=== PATIENT | female | born 1975 | race Caucasian/White ===

== ENCOUNTER 2017-01-23 12:03 | Emergency (ER) | payer BC ==
[2017-01-23 12:16] VITALS: BP 129/95
--- NOTE | 2017-01-23 12:28 | UC ---
Cardiac HPI - HPI Summary HPI Summary: 41 yo female with the onset last PM of mild left side chest pressure (3/10) vague left arm pain was a little winded when she did house work no n/v no abd pain no diaphoresis no current dysnea - History of Current Complaint Chief Complaint: UCChestPain Stated Complaint: CHEST PAIN Time Seen by Provider: 01/23/17 12:21 Hx Obtained From: Patient Onset/Duration: Gradual Onset, Lasting Hours Timing: Constant Initial Severity: Mild Current Severity: None Pain Intensity: 3 - some vague left arm discomfort Chest Pain Location: Left Anterior Character: Pressure/Squeezing Aggravating: Nothing Alleviating: Nothing Associated Signs & Symptoms: Positive: Chest Pain. Negative: Vision Changes, Anxiety, Recent Stress, Headaches, Numbness, Tingling, Weakness, Dizziness, SOB , Swelling, Syncope, Fever, Diaphoresis, Nausea/Vomiting, Palpitations, Cough, Hemoptysis, Back Pain, Abdominal Pain, Calf Pain/Swelling Related History: Similar Episode/Dx as - similar but less severe symptoms have been going on for months. She spoke about this to her MD had had lipid panel ordered by she has not yet had it drawn - Allergy/Home Medications Allergies/Adverse Reactions: Allergies Allergy/AdvReac Type Severity Reaction Status Date / Time Penicillins Allergy Rash Verified 01/23/17 12:16 Home Medications: Home Medications NK [No Home Medications Reported] 01/23/17 [History Confirmed 01/23/17] PMH/Surg Hx/FS Hx/Imm Hx Previously Healthy: Yes Endocrine History Of: Denies: Diabetes, Thyroid Disease Cardiovascular History Of: Denies: Cardiac Disorders, Hypertension Respiratory History Of: Denies: COPD, Asthma GI/ History Of: Denies: Ulcer - Surgical History Surgical History: Yes Surgery Procedure, Year, and Place: csection 02/2012. Hysterectomy 2014 - Family History Known Family History: Positive: Cardiac Disease - DAD CABG age 45/MOM CABG age 50 - Social History Alcohol Use: Daily Alcohol Amount: 1 glass wine q daily Substance Use Type: None Smoking Status (MU): Never Smoked Tobacco Review of Systems Constitutional: Negative Skin: Negative Eyes: Negative ENT: Negative Respiratory: Negative Cardiovascular: Chest Pain Gastrointestinal: Negative Genitourinary: Negative Motor: Negative Neurovascular: Negative Musculoskeletal: Negative Neurological: Negative Psychological: Negative All Other Systems Reviewed And Are Negative: Yes Physical Exam Triage Information Reviewed: Yes Appearance: Well-Appearing, No Pain Distress, Well-Nourished Vital Signs: Initial Vital Signs Temp 98.2 F 01/23/17 12:06 Pulse 75 01/23/17 12:06 Resp 16 01/23/17 12:06 BP 129/95 01/23/17 12:06 Pulse Ox 100 01/23/17 12:06 Vital Signs Reviewed: Yes Eyes: Positive: Conjunctiva Clear ENT: Positive: Normal ENT inspection Dental Exam: Normal Neck exam: Normal Respiratory: Positive: Chest non-tender, Lungs clear, Normal breath sounds, No respiratory distress, No accessory muscle use Cardiovascular: Positive: RRR, No Murmur Abdomen Description: Positive: Nontender, Soft. Negative: CVA Tenderness (R), CVA Tenderness (L), Distended, Guarding Musculoskeletal: Positive: ROM Intact, No Edema Neurological: Positive: Alert, Muscle Tone Normal Psychological Exam: Normal Skin Exam: Normal Diagnostics - EKG Cardiac Rate: NL Cardiac Rhythm: Sinus: Normal Ectopy: None ST Segment: Normal - Assessment/Plan Course Of Treatment: because of her strong family HX of CAD at an early age I suggested she go to the ER for R/O ND. I told her that this could be CAD despite a normal EKG. She declines EMS transfer. D/W Dr. Louis - Clinical Impression Provider Diagnoses: Chest pain of uncertain cause Discharge - Discharge Plan Condition: Stable Disposition: AGAINST MEDICAL ADVICE
[2017-01-23] MEDS ORDERED: Aspirin Low Dose CHEW TAB* 81 MG PO ONE (12:43)
[2017-01-24] MEDS ORDERED: Aspirin Low Dose CHEW TAB* 81 MG PO ONE (12:35)
== END 2017-01-23 12:44 | disposition left against medical advice (07) ==
LOC: UCEAST 12:03
DX: R07.9 Chest pain, unspecified (principal); Z88.0 Allergy status to penicillin
CPT/HCPCS: 93005; 99213; A9270-GY; G0463

== ENCOUNTER 2017-01-23 13:13 | Emergency (ER) | payer BC ==
[2017-01-23] MEDS ORDERED: Aspirin Low Dose CHEW TAB* 81 MG PO ONE (14:27)
--- NOTE | 2017-01-23 15:00 | RAD ---
INDICATION: Chest pain. COMPARISON: There are no prior studies available for comparison. TECHNIQUE: A portable view of the chest was obtained. FINDINGS: Cardiac and mediastinal contours appear to be within normal limits. The lungs are clear. No pleural effusion is seen. IMPRESSION: NO EVIDENCE FOR ACUTE FINDING.
[2017-01-23 15:03] LABS: Hematocrit 42 % (35-47); Hemoglobin 14.4 g/dl (12.0-16.0); Mean Corpuscular HGB Conc 34 g/dl (31-36); Mean Corpuscular Hemoglobin 29 pg (27-31); Mean Corpuscular Volume 85 fL (80-97); Mean Platelet Volume 9 um3 (7.4-10.4); Red Blood Count 4.95 10^6/ul (4.0-5.4); Red Cell Distribution Width 13 % (10.5-15); White Blood Count 7.4 10^3/ul (3.5-10.8)
[2017-01-23] MEDS: Nitroglycerin TAB 0.4 MG* 0.4 MG TAB SL ONE ×2 (15:11→15:25)
[2017-01-23 15:17] LABS: Troponin I 0.02 ng/mL (<0.04)
[2017-01-23 15:24] LABS: Albumin 4.2 g/dL (3.2-5.2); BUN/Creatinine Ratio 19.6 (8-20); Calcium 8.6 mg/dL (8.6-10.3); EGFR African American 169.3 (>60); EGFR Non-African American 131.6 (>60); Globulin 2.5 g/dL (2-4); Potassium 3.9 mmol/L (3.5-5.0); Total Bilirubin 0.6 mg/dL (0.2-1.0); Total Protein 6.7 g/dL (6.4-8.9)
[2017-01-23] MEDS ORDERED: Ketorolac INJ* 30 MG/ML 1 ML VIAL IV PUSH ONE (16:26)
[2017-01-23 19:15] VITALS: BP 120/77
--- NOTE | 2017-01-24 14:25 | ED ---
Eric King SooYoung, scribed for Jaydon Louis MD on 01/23/17 at 1441 . HPI Chest Pain - HPI Summary HPI Summary: A 41 y/o F presents to ED referred from [facility] with c/o acute, constant CP onset last night. She states she's been having intermittent CP for past few months, but when it occurred last night it didn't go away. She describes it as uncomfortable, moreso than pain, rates it as a 3 out of 10. Associated sx: LUE pain. Denies: n/v, diaphoresis. Pert FHx: both parents had CAD, CABG before 55. Exertion does not seem to aggravate sx. PSHx: hysterectomy. Nondrinker. Occasional drinker. Denies recent trips. PCP is Dr. Garcia. - History of Current Complaint Chief Complaint: EDChestWallPain Time Seen by Provider: 01/23/17 14:26 Hx Obtained From: Patient Onset/Duration: Started Hours Ago, Still Present Timing: Constant Current Severity: Mild Pain Intensity: 3 Pain Scale Used: 0-10 Numeric Chest Pain Radiates: Yes Chest Pain Radiates To:: Arm - L Character: Pressure/Squeezing Associated Signs and Symptoms: Positive: Other: - POS: LUE pain. Negative: Diaphoresis, Nausea, Vomiting - Allergy/Home Medications Allergies/Adverse Reactions: Allergies Allergy/AdvReac Type Severity Reaction Status Date / Time Penicillins Allergy Rash Verified 01/23/17 12:16 PMH/Surg Hx/FS Hx/Imm Hx Previously Healthy: Yes Endocrine/Hematology History: Denies: Hx Diabetes, Hx Thyroid Disease Cardiovascular History: Denies: Hx Hypertension Respiratory History: Denies: Hx Asthma, Hx Chronic Obstructive Pulmonary Disease (COPD) GI History: Denies: Hx Ulcer - Surgical History Surgery Procedure, Year, and Place: csection 02/2012. Hysterectomy 2014 Infectious Disease History: No Infectious Disease History: Denies: Hx Clostridium Difficile, Hx Hepatitis, Hx Human Immunodeficiency Virus (HIV), Hx of Known/Suspected MRSA, Hx Shingles, Hx Tuberculosis, Traveled Outside the [place] in Last 30 Days - Family History Known Family History: Positive: Cardiac Disease - DAD CABG age 45/MOM CABG age 50 - Social History Occupation: Employed Full-time Lives: With Family Alcohol Use: Daily Alcohol Amount: 1 glass wine q daily Hx Substance Use: Yes Substance Use Type: Reports: None Hx Tobacco Use: Yes Smoking Status (MU): Never Smoked Tobacco Review of Systems Negative: Fever, Chills Negative: Erythema Negative: Sore Throat Positive: Chest Pain Negative: Shortness Of Breath, Cough Negative: Abdominal Pain, Vomiting, Nausea Negative: dysuria, hematuria Positive: Myalgia - LUE pain. Negative: Edema Negative: Rash Neurological: Other - neg: dizziness All Other Systems Reviewed And Are Negative: Yes Physical Exam - Summary Physical Exam Summary: Constitutional: Well-developed, Well-nourished, Alert. (-) Distressed Skin: Warm, Dry HENT: Normocephalic; Atraumatic Eyes: Conjunctiva normal Neck: Musculoskeletal ROM normal neck. (-) JVD, (-) Stridor, (-) Tracheal deviation Cardio: Rhythm regular, rate normal, Heart sounds normal; Intact distal pulses; The pedal pulses are 2+ and symmetric. Radial pulses are 2+ and symmetric. (-) Murmur Pulmonary/Chest wall: Effort normal. (-) Respiratory distress, (-) Wheezes, (-) Rales; NO COSTOCHONDRITIS TENDERNESS Abd: Soft, (-) Tenderness, (-) Distension, (-) Guarding, (-) Rebound Musculoskeletal: (-) Edema; Lymph: (-) Cervical adenopathy Neuro: Alert, Oriented x3 Psych: Mood and affect Normal Triage Information Reviewed: Yes Vital Signs On Initial Exam: Initial Vitals Temp Pulse Resp BP Pulse Ox 97.8 F 68 18 118/85 100 01/23/17 13:15 01/23/17 13:15 01/23/17 13:15 01/23/17 13:15 01/23/17 13:15 Vital Signs Reviewed: Yes - Maxine Coma Scale Coma Scale Total: 15 Diagnostics - Vital Signs Vital Signs Temp Pulse Resp BP Pulse Ox 01/23/17 14:28 97.9 F 62 20 124/93 100 01/23/17 13:15 97.8 F 68 18 118/85 100 - Laboratory Result Diagrams: 01/23/17 14:50 01/23/17 14:50 Lab Statement: Any lab studies that have been ordered have been reviewed, and results considered in the medical decision making process. - Radiology CXR Xray Interpretation: No Acute Changes - IMPRESSION: No evidence for acute findings. Radiology Interpretation Completed By: Radiologist - EKG 1 Cardiac Rate: NL - 69 bpm EKG Rhythm: Sinus Rhythm EKG Interpretation: no STEMI Re-Evaluation - Re-Evaluation 1 Re-Evaluation Time: 16:24 Change: Unchanged Comment: Discussing results with pt. No change with nitro. Chest Pain Course/Dx - Course Course Of Treatment: Pt is 41 y/o F referred by [facility], presenting with acute, constant CP onset last night. She states she's been having intermittent CP for past few months, but when it occurred last night it didn't go away. She describes it as uncomfortable, moreso than pain, rates it as a 3 out of 10. Associated sx: LUE pain. Denies: n/v, diaphoresis. Pert FHx: both parents had CAD, [place] before 55. Pt given aspirin, nitro, toradol in ED. CXR is negative. First trop is 0.02. Second trop is 0.00. Spoke to bankruptcy assistant, suggests stress test in three days. Will D/C home, to f/u with Dr. Colón on for stress test, recommended to take aspirin daily until then. - Diagnoses Provider Diagnoses: Chest pain - Provider Notifications Discussed Care Of Patient With: Dr. Colón, cardio: discussed pt with Dr. Colón, CP unaffected by nitro, nml EKGs, suggests stress test on Tues AM. Time Discussed With Above Provider: 18:47 Discharge - Discharge Plan Condition: Stable Disposition: HOME Patient Education Materials: Chest Pain (ED) Referrals: Katherin Ramirez MD [Primary Care Provider] - Jem Colón MD [Medical Doctor] - 3 Days (See Dr. Colón, AM for a stress test.) Additional Instructions: Return to the emergency department for changing or worsening or persistent symptoms. As we discussed, take an aspirin daily until you take stress test. The documentation as recorded by the Eric mckeon SooYoung accurately reflects the service I personally performed and the decisions made by me, Jaydon Louis MD.
== END 2017-01-23 19:14 | disposition home or self-care (01) ==
LOC: ED 13:13
DX: R07.9 Chest pain, unspecified (principal)
CPT/HCPCS: 36415; 71010; 80053; 83605; 84484; 85025; 85379; 93005; 96374; 99285; A9270-GY; J1885

== ENCOUNTER 2019-06-26 09:21 | Emergency (ER) | payer BC ==
[2019-06-26 09:55] VITALS: BP 120/86
--- NOTE | 2019-06-26 10:14 | UC ---
Bite Injury/Animal HPI - HPI Summary HPI Summary: 44-year-old woman comes in with a chief complaint of a tick bite on her left breast. She found a tick today and pulled it out with tweezers. She is not sure how long its been in there. She is pretty sure there is still apart at the tick left and has the tick broke up as she was pulling off. There is some redness around the site. No bull's-eye rash no fevers feels well otherwise. - History of Current Complaint Chief Complaint: UCSkin Stated Complaint: TICK BITE Time Seen by Provider: 06/26/19 09:57 Hx Last Menstrual Period: 07/10/13 Pain Intensity: 0 - Allergies/Home Medications Allergies/Adverse Reactions: Allergies Allergy/AdvReac Type Severity Reaction Status Date / Time Penicillins Allergy Rash Verified 06/26/19 09:55 Home Medications: Home Medications Estradiol PATCH 0.0375/DAY* 1 patch TRANSDERM Q7D 06/26/19 [History Confirmed ] Progesterone, Micronized [Progesterone] 100 mg PO DAILY 06/26/19 [History Confirmed 06/26/19] PMH/Surg Hx/FS Hx/Imm Hx Previously Healthy: Yes - Surgical History Surgical History: Yes Surgery Procedure, Year, and Place: csection 02/2012. Hysterectomy 2014 - Family History Known Family History: Positive: Cardiac Disease - DAD CABG age 45/MOM CABG age 50 - Social History Alcohol Use: Weekly Alcohol Amount: 1 glass wine q daily Substance Use Type: None Smoking Status (MU): Never Smoked Tobacco Review of Systems All Other Systems Reviewed And Are Negative: Yes Constitutional: Positive: Negative Skin: Positive: Other - see hpi Eyes: Positive: Negative ENT: Positive: Negative Respiratory: Positive: Negative Cardiovascular: Positive: Negative Gastrointestinal: Positive: Negative Motor: Positive: Negative Neurovascular: Positive: Negative Musculoskeletal: Positive: Negative Neurological: Positive: Negative Psychological: Positive: Negative Is Patient Immunocompromised?: No Physical Exam Triage Information Reviewed: Yes Appearance: Well-Appearing, No Pain Distress, Well-Nourished Vital Signs: Initial Vital Signs Temp 97.9 F 06/26/19 09:50 Pulse 86 06/26/19 09:50 Resp 18 06/26/19 09:50 BP 120/86 06/26/19 09:50 Pulse Ox 99 06/26/19 09:50 Vital Signs Reviewed: Yes Eye Exam: Normal Eyes: Positive: Conjunctiva Clear Neck: Positive: Supple Respiratory: Positive: No respiratory distress Musculoskeletal: Positive: Strength Intact, ROM Intact Neurological: Positive: Alert, Muscle Tone Normal Psychological: Positive: Age Appropriate Behavior Skin: Positive: Other - On the left breast there is a 2 cm area of erythema metal there is a punctate dark foreign body consistent with tick mouth parts. The rash is not a bull's-eye appearance. No drainage. Bite Injury Course/Dx - Course Course Of Treatment: Patient is flying to [place] today. I recommended to the patient to take doxycycline 200 mg single dose today. I wrote a prescription for a total of 30 pills of doxycycline so that she can take the 2 pills today and then if any symptoms of Lyme appear such as a bull's-eye rash or cellulitis at the site or fevers chills body aches and headaches she is to continue the doxycycline 100 mg by mouth twice a day for 14 days. - Differential Dx/Diagnosis Provider Diagnosis: Tick bite of chest wall Discharge ED - Sign-Out/Discharge Documenting (check all that apply): Patient Departure All imaging exams completed and their final reports reviewed: No Studies - Discharge Plan Condition: Stable Disposition: HOME Prescriptions: DOXYcycline CAP(*) [DOXYcycline 100MG CAP(*)] 100 mg PO BID #30 cap Patient Education Materials: Lyme Disease (ED), Tick Bite (ED) Referrals: Sophia Garcia MD [Primary Care Provider] - Additional Instructions: FOLLOW UP WITH YOUR DOCTOR IF NOT COMPLETELY IMPROVED. Today take doxycycline 200 mg (two 100mg tablets) with food. If you develop any signs or symptoms of Lyme disease such as a bull's-eye rash or fevers chills and body aches headache or if the rash around the tick bite site gets worse rather than better, continue the doxycycline at 100 mg twice a day for 14 days. GET RECHECKED SOONER IF YOUR CONDITION WORSENS OR ANY QUESTIONS OR CONCERNS. - Billing Disposition and Condition Condition: STABLE Disposition: Home
== END 2019-06-26 10:18 | disposition home or self-care (01) ==
LOC: UCEAST 09:21
DX: S20.162A Insect bite (nonvenomous) of breast, left breast, initial encounter (principal); Z88.0 Allergy status to penicillin; W57.XXXA Bitten or stung by nonvenomous insect and other nonvenomous arthropods, initial encounter; Y92.9 Unspecified place or not applicable
CPT/HCPCS: 99212; G0463